=== PATIENT | male | born 1995 | race African-American/Black ===

== ENCOUNTER 2019-02-14 00:29 | Emergency (ER) | payer OTHER ==
[~2019-02-14] VITALS: Ht 157.5 cm; Wt 59.0 kg
[~2019-02-14 00:29] MED LIST: AMOXICILLIN 25250 M1 PO; CIPROFLOXACIN500 M1 PO; NOHOMEMEDICATIONS; NORCO 5-325 TA1 EACH; PERCOCET 5-3251 EACH PO; ULTRAM 50MG TAB50 MG PO
[2019-02-14] MEDS ORDERED: COMPAZINE10 MG PO (02:14)
[2019-02-14 02:19] VITALS: BP 106/56
== END 2019-02-14 02:20 | disposition home or self-care (01) ==
LOC: M.ERS 00:29
DX: G43.909 Migraine, unspecified, not intractable, without status migrainosus (principal); Z90.49 Acquired absence of other specified parts of digestive tract

== ENCOUNTER 2019-07-31 17:45 | Emergency (ER) | payer OTHER ==
[~2019-07-31] VITALS: Ht 157.5 cm; Wt 61.2 kg
[~2019-07-31 17:45] MED LIST changes: +COMPAZINE10 MG PO
[2019-07-31 17:53] VITALS: BP 121/68
[2019-07-31] MEDS ORDERED: NAPROSYN500 MG PO (19:37)
[2019-07-31] MEDS ORDERED: FLEXERIL PO (19:37)
== END 2019-07-31 19:44 | disposition home or self-care (01) ==
LOC: M.ERS 17:45
DX: S29.012A Strain of muscle and tendon of back wall of thorax, initial encounter (principal); R06.02 Shortness of breath; R11.2 Nausea with vomiting, unspecified; F12.10 Cannabis abuse, uncomplicated; Z90.89 Acquired absence of other organs; X58.XXXA Exposure to other specified factors, initial encounter; Y93.89 Activity, other specified; Y92.89 Other specified places as the place of occurrence of the external cause; Y99.8 Other external cause status

== ENCOUNTER 2020-05-20 13:36 | Emergency (ER) | payer OTHER ==
[~2020-05-20] VITALS: Ht 157.5 cm; Wt 61.2 kg
[~2020-05-20 13:36] MED LIST changes: +FLEXERIL PO; +NAPROSYN500 MG PO
[2020-05-20 14:56] VITALS: BP 136/85
== END 2020-05-20 14:57 | disposition home or self-care (01) ==
LOC: M.ERS 13:36
DX: G43.909 Migraine, unspecified, not intractable, without status migrainosus (principal); Z90.49 Acquired absence of other specified parts of digestive tract

== ENCOUNTER 2020-05-25 14:53 | Emergency (ER) | payer OTHER ==
[~2020-05-25] VITALS: Ht 157.5 cm; Wt 61.2 kg
[2020-05-25] MEDS ORDERED: BUTALB-APAP-CA1 EACH PO (15:31)
[2020-05-25] MEDS ORDERED: PHENERGAN 25 MG25 M1 PO (15:31)
[2020-05-25 17:34] VITALS: BP 104/60
== END 2020-05-25 17:34 | disposition home or self-care (01) ==
LOC: M.ERS 14:53
DX: G43.109 Migraine with aura, not intractable, without status migrainosus (principal); Z90.49 Acquired absence of other specified parts of digestive tract

== ENCOUNTER 2020-06-06 20:58 | Emergency (ER) | payer OTHER ==
[~2020-06-06] VITALS: Ht 160 cm; Wt 61.2 kg
[~2020-06-06 20:58] MED LIST changes: +BUTALB-APAP-CA1 EACH PO; +PHENERGAN 25 MG25 M1 PO
[2020-06-06 23:19] VITALS: BP 108/67
== END 2020-06-06 23:19 ==
LOC: M.ERS 20:58
DX: G43.909 Migraine, unspecified, not intractable, without status migrainosus (principal); Z90.49 Acquired absence of other specified parts of digestive tract